=== PATIENT | male | born 1985 | race African-American/Black ===

== ENCOUNTER 2017-03-09 12:50 | Emergency (ER) | payer SELFPAY ==
[2017-03-09 13:00] VITALS: BP 106/53
--- NOTE | 2017-03-09 13:39 | RAD ---
INDICATION: Pain and swelling right elbow. TECHNIQUE: 4 views of the right elbow were obtained. FINDINGS: The bones are in normal alignment. No joint effusion or fracture is seen. Joint spaces appear maintained. IMPRESSION: NO EVIDENCE FOR FRACTURE.
--- NOTE | 2017-03-09 13:40 | RAD ---
HISTORY: Pain and swelling of right elbow COMPARISONS: Right elbow dated March 09, 2017 VIEWS: 2, Frontal internal rotation and external rotation views of the right humerus FINDINGS: BONE DENSITY: Normal. BONES: There is no displaced fracture. JOINTS: There is no arthropathy. ALIGNMENT: There is no dislocation. SOFT TISSUES: Unremarkable. OTHER FINDINGS: None. IMPRESSION: NO ACUTE OSSEOUS INJURY. IF SYMPTOMS PERSIST, RECOMMEND REPEAT IMAGING.
--- NOTE | 2017-03-09 14:08 | UC ---
Kaleb Landin Angela, scribed for Carlos Clark MD on 03/09/17 at 1315 . Upper Extremity HPI - HPI Summary HPI Summary: This pt is a 31 y/o right-handed male presenting to [facility] c/o sore upper right arm s/p injury during work at 11:40 AM today. 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 He notes his arm is sore but not painful. Pt denies chest pain, elbow pain, wrist pain, neck pain. Pt states doing a lot of physical activity due to his work. - History of Current Complaint Chief Complaint: UCUpperExtremity Stated Complaint: ARM INJURY Time Seen by Provider: 03/09/17 13:02 Hx Obtained From: Patient Onset/Duration: Sudden Onset Severity Initially: Mild Severity Currently: Mild Pain Intensity: 1 Pain Scale Used: 0-10 Numeric Location Of Pain: Is Discrete @ - Right upper arm Aggravating Factor(s): Nothing Alleviating Factor(s): Nothing Associated Signs And Symptoms: Positive: Other - Sore right arm. Related History: Dominant Hand Right - Allergies/Home Medications Allergies/Adverse Reactions: Allergies Allergy/AdvReac Type Severity Reaction Status Date / Time Shellfish Allergy Allergy Swelling Verified 03/09/17 12:55 Of Face,Lips,& Throat PMH/Surg Hx/FS Hx/Imm Hx Other Endocrine History: DENIES: Diabetes, thyroid disease Other Cardiovascular History: DENIES: Cardiac disease - Surgical History Surgical History: Yes Surgery Procedure, Year, and Place: leg - Social History Alcohol Use: Rare Substance Use Type: None Smoking Status (MU): Never Smoked Tobacco Review of Systems Constitutional: Negative Skin: Negative ENT: Negative Respiratory: Negative Cardiovascular: Negative Gastrointestinal: Negative Motor: Negative Neurovascular: Negative Musculoskeletal: Other: - Sore right upper extremity. NEGATIVE: chest pain, elbow pain Neurological: Negative All Other Systems Reviewed And Are Negative: Yes Physical Exam Triage Information Reviewed: Yes Vital Signs: Initial Vital Signs Temp 98.9 F 03/09/17 12:55 Pulse 56 03/09/17 12:55 Resp 16 03/09/17 12:55 BP 106/53 03/09/17 12:55 Pulse Ox 100 03/09/17 12:55 Vital Signs Reviewed: Yes - Additional Comments The patient is well-nourished in no acute distress and in no acute pain. The skin is warm and dry and skin color reflects adequate perfusion. HEENT: The head is normocephalic and atraumatic. Neck is supple with full range of motion and non-tender. Respiratory: Chest is non-tender. Lungs are clear to auscultation and breath sounds are symmetrical and equal. Cardiovascular: Hear is regular rate and rhythm. There is no murmur or rub auscultated. Musculoskeletal: There is no back pain noted. There is tenderness over the bicep tendon. The bicep tendon appears it is intact and attaches to the forearm. There is no tenderness over the proximal bicep tendon. Pt is able to fully flex his arm. There is no swelling or deformity. He is able to extend his arm. There is no tenderness with exertion on the chest. Neurological: Patient is alert and oriented to person, place and time. The patient has symmetrical motor strength in all four extremities. Psychiatric: The patient has an appropriate affect and does not exhibit any anxiety or depression. Diagnostics - Radiology XR of right elbow Xray Interpretation: No Acute Changes - IMPRESSION: No evidence for fracture. Radiology Interpretation Completed By: Radiologist XR of right humerus Xray Interpretation: No Acute Changes - IMPRESSION: No acute osseous injury. If symptoms persist, recomment repeat imaging. Radiology Interpretation Completed By: Radiologist Upper Extremity Course/Dx - Course Course Of Treatment: Pt's bicep tendon appears intact. There are no deformities noted on X-ray. Pt will be discharged with naproxen and is advised to follow up with Dr. Acosta. - Differential Dx/Diagnosis Differential Diagnosis/HQI/PQRI: Strain, Other - biceps rupture Provider Diagnoses: Bicep tendinitis right distal Discharge - Discharge Plan Condition: Stable Disposition: HOME Prescriptions: Naproxen [Naprosyn 500 mg] 500 mg PO BID PRN #30 tab PRN Reason: pain Patient Education Materials: Tendinitis (ED) Forms: *Work Release Referrals: Radha Acosta MD [Medical Doctor] - Additional Instructions: Please follow up with Dr. Acosta to assure your symptoms are improving. Rest and use ice as necessary. Take naproxen as instructed. The documentation as recorded by the Kaleb smith Angela accurately reflects the service I personally performed and the decisions made by , Carlos Clark MD.
== END 2017-03-09 13:59 | disposition home or self-care (01) ==
LOC: UCEAST 12:50
DX: M75.21 Bicipital tendinitis, right shoulder (principal); Z91.013 Allergy to seafood
CPT/HCPCS: 99212; G0463

== ENCOUNTER 2017-03-20 09:57 | Day surgery (SDC) | payer OTHER ==
--- NOTE | 2017-03-15 20:43 | HP ---
PREOPERATIVE HISTORY AND PHYSICAL: DATE OF ADMISSION/SURGERY: 03/20/17 [facility] ATTENDING SURGEON: Radha Acosta MD * (DICTATED BY PRITI GERMAN) PROCEDURE: Right distal biceps repair. CHIEF COMPLAINT: Right arm pain. HISTORY OF PRESENT ILLNESS: Samir is a 31-year-old male who presents to the clinic for a right biceps injury that occurred on 03/09/17. This is a work related injury. 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 Since that time he has had a deep aching pain in his distal biceps that he rates as a 3 out of 10. He was seen at urgent care where x-rays were taken and revealed no injuries. He has not had treatment yet, he is taking naproxen as needed for the pain. He reports no prior injuries or pain in the right arm. He denies numbness, tingling, or fever or chills. He is a nonsmoker. He is not diabetic. PAST MEDICAL HISTORY: Positive for hepatitis B. PAST SURGICAL HISTORY: ACL reconstruction and broken leg. MEDICATIONS: Naproxen 250 mg oral by mouth twice a day as needed for pain with food. ALLERGIES: No known drug allergies. FAMILY HISTORY: Denies pertinent family history. SOCIAL HISTORY: He lives alone. 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 He denies tobacco use. He denies alcohol consumption. He exercises regularly. He is right hand dominant. REVIEW OF SYSTEMS: A 14-point review of systems was reviewed with the patient. Positive for current complaint, otherwise negative. PHYSICAL EXAMINATION GENERAL: This 31-year-old well-developed, well-nourished male in no acute distress, alert and oriented x3. Appropriate mood and affect. VITAL SIGNS: Height 71 inches, weight 200 pounds. Pulse 58, blood pressure 110 /80, temperature 98. BMI 27.9. HEENT: Normocephalic, atraumatic. PERRLA. Throat clear. NECK: Supple. PULMONARY: Lungs clear to auscultation bilaterally. No wheezing, rhonchi or rales. CARDIO: Regular rate and rhythm. S1, S2. No murmurs, gallops or rubs. No edema. ABDOMEN: Positive bowel sounds. Soft, nontender. NEURO: Alert and oriented x3. Cranial nerves grossly intact. Sensation is intact to light touch. MUSCULOSKELETAL: Right upper extremity skin intact. No warmth or erythema. He does have asymmetric biceps contour compared to the contralateral side. He has got a palpable biceps stump and a negative hook test. His distal biceps tendon is not intact. Full pain-free range of motion of the elbow, +5/5 upper extremity strength bilaterally. +2 radial pulse. Sensation intact to light touch distally. Left upper extremity skin intact. No warmth or erythema. Nontender to palpation. Full range of motion, +5/5 strength. +2 radial pulse. Sensation intact to light touch distally. DIAGNOSTIC STUDIES: Multiple view x-rays of the right elbow reveal no evidence of acute fracture or dislocation. IMPRESSION: Right arm distal biceps rupture. PLAN: Patient wanted to undergo a right distal biceps repair with Dr. Acosta tentatively on 03/20/17, pending [employer] approval. This is a request for [employer] approval of the right distal biceps repair. He will return in about 10 to 14 days postop for followup and suture removal. Percocet will be used for postop pain management and Keflex will be used for antibiotic prophylaxis. Risks of surgeries include infection, damage to nerves, blood vessels, surrounding structures, stiffness and need for further surgery and reinjury to the biceps were discussed with the patient. The patient has agreed to undergo the procedure. PRITI GERMAN [id number]/[facility] #: [id number] [facility]
[~2017-03-20 09:57] MED LIST: Buffered Lidocaine 0.9% SYRIN* 5 ML/SYR SYRINGE INTRADERM ONE; Dexamethasone IV* 4 MG/ML 1 ML (4 MG) IV SLOW PU ONE; Famotidine IV* 10 MG/ML 2 ML (20 mg) IV ONE
[2017-03-20] MEDS ORDERED: ceFAZolin 2 GM PREMIX (*) 50 ML IVPB ONE (10:33)
[2017-03-20] MEDS ORDERED: Famotidine IV* 10 MG/ML 2 ML (20 mg) ONE (10:34)
[2017-03-20] MEDS ORDERED: Dexamethasone IV* 4 MG/ML 1 ML (4 MG) ONE (10:34)
[2017-03-20] MEDS ORDERED: Bupivacaine 0.25% SDV* 30 ML ONE (12:22)
[2017-03-20] MEDS ORDERED: Midazolam* 1 MG/ML 5 ML VIAL (5 MG) ONE (12:27)
[2017-03-20] MEDS ORDERED: fentaNYL* 50 MCG/ML 2 ML VIAL (100 MCG VIAL) ONE ×3 (12:27→15:14)
[2017-03-20] MEDS ORDERED: Propofol* 10 MG/ML 20 ML BTL IV PUSH ONE (12:30)
[2017-03-20] MEDS ORDERED: Lidocaine 2% PF * 5 ML VIAL ONE (12:30)
[2017-03-20] MEDS ORDERED: Ketorolac INJ* 30 MG/ML 1 ML VIAL ONE (12:56)
[2017-03-20] MEDS ORDERED: HYDROcodone/ACETAMIN 5-325 MG* 1 TAB PO PRN (13:17)
[2017-03-20] MEDS ORDERED: fentaNYL* 50 MCG/ML 2 ML VIAL (100 MCG VIAL) IV PRN (13:17)
[2017-03-20] MEDS ORDERED: oxyCODONE/Acetamin 5/325 MG* TAB PO PRN (13:17)
[2017-03-20] MEDS ORDERED: PROCHLORPERAZINE INJ 5 MG/ML 2 ML VIAL IV PRN (13:17)
[2017-03-20] MEDS ORDERED: Ondansetron INJ* 2 MG/ML VIAL ONE (14:24)
[2017-03-20] MEDS ORDERED: oxyCODONE/Acetamin 5/325 MG* TAB ONE (15:34)
[2017-03-20 16:40] VITALS: BP 123/51
--- NOTE | 2017-03-21 16:07 | RAD ---
INDICATION: Distal biceps tendon repair. COMPARISON: There are no prior studies available for comparison. TECHNIQUE: 16 seconds of intermittent fluoroscopic guidance were provided and a single spot film of the proximal forearm was obtained. FINDINGS: There is a small metallic plate which projects adjacent to the proximal radius consistent with the patient's history of a biceps tendon repair. IMPRESSION: INTRAOPERATIVE CONTROL FILMS. CPT II Codes: 6045F
--- NOTE | 2017-03-25 14:14 | OP ---
DATE OF OPERATION: 03/20/17 [facility] DATE OF : 89 SURGEON: Radha Acotsa MD STEEL ROLLER: PRITI Crocker ANESTHESIOLOGIST: Dr. Gandhi. ANESTHESIA: General anesthesia with endotracheal intubation. PRE-OP DIAGNOSIS: Right distal biceps rupture. POST-OP DIAGNOSIS: Right distal biceps rupture. OPERATIVE PROCEDURE: Right distal biceps repair. IMPLANTS: Arthrex biceps button. TOURNIQUET TIME: 95 minutes. COMPLICATIONS: None. ESTIMATED BLOOD LOSS: Minimal. 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 He was seen in Urgent Care and he presented for evaluation on 03/14/17. He denies any numbness or tingling. He had no other injuries that were apparent at that time. He had a clinical suspicion of distal biceps rupture based on his examination as well as his physical appearance. The plan was for right distal biceps repair. He tried to do this as soon as possible. Risks and benefits of surgery were discussed at length and include but are not limited to bleeding, infection, damage to nerves, vessels, surrounding structures, wound nonhealing, persistent pain, need for further surgery, chronics stiffness, incomplete relief of symptoms, possible damage to the PI and radial nerve, sensory nerve, lateral antebrachial cutaneous nerve, incomplete resolution of symptoms, failure, persistent pain, risk of re-rupture, stiffness, risk of anesthesia, and risk of DVT. He has elected to proceed with surgery. After obtaining Workers' Comp approval, we planned for surgery as soon as possible. DESCRIPTION OF PROCEDURE: The patient was greeted in the preoperative area by the attending surgeon, correct extremity was marked, consent was confirmed. He was placed in the supine position on the operating room table and the arm was extended over the hand table. He then underwent general anesthesia with endotracheal intubation after which the right arm was prepped and draped in usual sterile fashion beginning with chlorhexidine soap, scrub, and alcohol wipe and a final prep with ChloraPrep. After appropriate surgical pause indicating site, side, procedure, and administration of antibiotics, an Esmarch was used to exsanguinate the limb and the sterile tourniquet was inflated to 250 mmHg. The longitudinal incision over the proximal radius was then made sharply with a 15-blade. This entire surgery was done with loupe magnification. The soft tissues were carefully dissected to expose the fascia. The lateral antebrachial cutaneous nerves and branches were identified and retracted laterally gently. The brachioradialis was identified as well as pronator teres. Brachioradialis was taken laterally and care was taken to attempt hemostasis while the lesion was identified. Dissection was taken down to the level of the bone and the radial styloid process was identified. The biceps stump was identified. There was no hematoma or seroma that was present. The bone was exposed with Hohmann placed gently on each side with care to try not to traumatize the tissues too much nor retract too much. Once the the radial styloid was identified, the excess biceps stump was removed and this was prepped using a rongeur and a rasp to allow for bone bleeding edge. At this point, attention was directed to identify the biceps and this was palpated proximally and there was a stump that was apparent, but it was encapsulated and we were unable to follow the tract. Therefore, a separate incision was made proximally where the biceps stump was identified. This was found to be encapsulated in tissue of the biceps stump. Seroma was present and the biceps stump was brought to the wound. It was very large and bulbous. This was then sharply excised and debrided down. The arthrex FiberLoop suture was passed in the usual fashion and essentially a locking whipstitch and then it was passed back through proximally to lock the stitch. The edges were then sharply debrided using a 15 blade and Metzenbaum scissors. It was sized to be at least an 8 mm, although the 10 was a little bit larger than that. The suture ends were then cut. The tract to the radial tuberosity was then identified. The biceps was brought back into the second portion of the wound. At this point, the arm was extended and hypersupinated to expose the radial styloid. This was confirmed over x-ray. The drill guide was then placed bicortically. Then the 8 mm reamer was then overdrilled with care to remove all excess bone and debris. The button was then passed through and deployed. It was noted to be flipped on the C- arm machine, flipped on to the cortex. The biceps was then shoveled back into the previously drilled hole and dunked at least 1 cm. This required the arm to be in flexion of about 60 degrees. The tension was checked. Once the appropriate depth was identified and the tendon was secured with sutures passed through the tendon and tied down. The wounds were copiously irrigated with sterile saline. The wounds were closed in layers with 2-0 Vicryl as well as 3-0 nylon proximally and 3-0 Monocryl distally. The wounds were injected with 0.25% Marcaine plain for postop pain control. He was left in a flexed position and placed in a well-padded posterior splint with a side strut. The tourniquet was deflated for a total time of about 95 minutes. Sterile dressings were applied. The posterior splint was applied. He was awoken from anesthesia and transferred to PACU in stable condition. A postoperative exam was done. He was found to flex and extend the wrist and hand and he was able to extend all of his digits. He found it difficult to tell sensation, but he stated he was able to feel everything. He had brisk capillary refill of all digits. POSTOPERATIVE PLAN: He will be nonweightbearing. He will be in the splint for approximately 2 weeks and we will transition him into a hinge elbow brace and start working on range of motion. He will follow up in the office in 10 to 14 days. He will be discharged with pain medications as well as antibiotics. I will see him back in 10 to 14 days. DVT prophylaxis considered but deferred due to no previous personal or family history. [id number]/[facility] #: [id number] FABIANA
== END 2017-03-20 16:34 | disposition home or self-care (01) ==
LOC: OREAST 09:57
PROVIDERS: ATTEND Orthopaedic Surgery
DX: S46.211A Strain of muscle, fascia and tendon of other parts of biceps, right arm, initial encounter (principal); X50.0XXA Overexertion from strenuous movement or load, initial encounter; Y93.89 Activity, other specified; Y92.149 Unspecified place in prison as the place of occurrence of the external cause; Y99.0 Civilian activity done for income or pay
CPT/HCPCS: 76000; A9270-GY; C1713; J0690; J1100; J1885; J2250; J2405; J2704; J3010